=== PATIENT | female | born 1935 ===

== ENCOUNTER 2019-02-13 09:42 | Inpatient (IN) | payer MEDICARE, BC ==
[~2019-02-13] VITALS: Ht 165.1 cm; Wt 68.9 kg
[2019-03-14] VITALS (11 sets, daily range): BP systolic 106–158; BP diastolic 40–64; PULSE 62–81; TEMP 97.3–98
[2019-03-14] MEDS ORDERED: LOPRESSOR 550 MG/TAB PO (01:32)
[2019-03-14] MEDS ORDERED: COZAAR 50MG50 MG/TAB PO (01:32)
--- NOTE | 2019-03-14 10:40 | NUR ---
PATIENT BACK IN ROOM 329 POST OP LTS REV. LUE DRESSING IS CD&I WITH AQUACEL AND ICE PACK INPLACE. ABDUCTOR SLING TO LUE. PATIENT IS ABLE TO SLIGHTLY WIGGLE FINGERS TO LUE BUT DENIES ANY PAIN AT THIS TIME. HEAD TO TOE ASSESSMENT WNL. VSS. NO C/O N/V. IV FLUIDS INFUSING INTO RIGHT FORARM IV VIA PUMP. LIQUIDS AT BEDSIDE. ORIENTED TO ROOM. CALL LIGHT IN REACH. AT BEDSIDE.
--- NOTE | 2019-03-14 12:17 | NUR ---
First visit from the sexer. No needs right now.
--- NOTE | 2019-03-14 14:46 | NUR ---
DHEERAJ met with the patient, patient's (Marty), and son to discuss discharge plan. The patient lives in [place] with her . She reports independence with ADLs and has a cane and walker. The patient's primary care provider is ARLET Loco and she receives her medications at the [facility] in [place]. She reports no difficulties obtaining her meds. The patient does not have advanced directives in EMR, but she states that she does believe she has them completed and at home. The patient plans to return home with her and receive outpatient therapy through [facility] in [place] upon discharge. She states that her daughter is coming and will be staying with them too upon discharge. No additional needs at this time.
--- NOTE | 2019-03-14 19:12 | NUR ---
Report received from URDDY Crouch.
[2019-03-15] VITALS: BP 112/60; PULSE 65; TEMP 98.2
--- NOTE | 2019-03-15 02:56 | NUR ---
Patient has voiced troubles sleeping this shift. Pain is managed, but patient states she just can't sleep. Currently wearing ear plugs. Patient noted to walk the unit several times this shift. Ice applied to site.
[2019-03-15 04:00] VITALS: BP 111/50; PULSE 61; TEMP 98.2
[2019-03-15] MEDS ORDERED: ASPI325T6 PO (06:55)
[2019-03-15] MEDS ORDERED: TYLENOL 500MG500 MG PO (06:57)
[2019-03-15] MEDS ORDERED: ULTRAM 50MG TAB50 MG PO (06:57)
[2019-03-15 07:01] LABS: HEMOGLOBIN 11.4 g/dl (12.5-16.0)
--- NOTE | 2019-03-15 07:04 | NUR ---
Report given to RUDDY Crouch.
[2019-03-15 07:09] LABS: HEMATOCRIT 34.5 % (37.0-47.0)
[2019-03-15 07:47] VITALS: BP 103/44; PULSE 72; TEMP 98.6
--- NOTE | 2019-03-15 12:55 | NUR ---
PATIENT DISCHARGING HOME VIA WHEELCHAIR TO PERSONAL VEHICLE WITH FAMILY. GAVE DISCHARGE INSTRUCTIONS, PRESCRIPTION, AQUACEL AND FOLLOW UP APTS. ANSWERED ALL QUESTIONS/CONCERNS. DC'D RIGHT FORARM IV, COVERED WITH BANDAID. PATIENT DISCHARGED.
== END 2019-03-15 12:55 | disposition home or self-care (01) | DRG 483 ==
LOC: JCC 03-14 05:24
PROVIDERS: ADMIT Orthopaedic Surgery
PROC: 0RRK00Z Replacement of Left Shoulder Joint with Reverse Ball and Socket Synthetic Substitute, Open Approach (ICD-10-PCS; principal; 2019-03-14 07:30)
DX: M19.012 Primary osteoarthritis, left shoulder (principal); I10 Essential (primary) hypertension; Z85.3 Personal history of malignant neoplasm of breast
CPT/HCPCS: A4314; A9284; C1713; C1776; J0690; J1100; J1885; J2250; J2405; J2704; J7120